=== PATIENT | male | born 1970 | race Caucasian/White ===

== ENCOUNTER 2018-12-24 11:26 | Emergency (ER) | payer BC ==
[2018-12-24 11:56] VITALS: BP 140/91
--- NOTE | 2018-12-24 12:02 | UC ---
UC General HPI - HPI Summary HPI Summary: Pleasant 48 yo gentleman presents c/o increased abd / flank pain since yesterday late afternoon/evening. No fever / chills. No n/v/d. Last bm yesterday, normal. No bm today. No freq /urg / dysuria / hematuria. No prior abd surgery. no rash. Some pain in L flank, and pain in periumbilical and infraumbilical region. No cp / sob / palpitations. No melena / brbpr. Wears heavy weight belt, better after it was removed but still + pain. 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 - History of Current Complaint Chief Complaint: UCAbdominalPain Stated Complaint: ABD/LOWER BACK PAIN Time Seen by Provider: 12/24/18 12:01 Hx Obtained From: Patient Pain Intensity: 3 - Allergy/Home Medications Allergies/Adverse Reactions: Allergies Allergy/AdvReac Type Severity Reaction Status Date / Time Seasonal/Environmental Allergy Intermediate Eyes Uncoded 12/01/14 10:37 Itchy/Swollen/Red/Watery Home Medications: Home Medications metFORMIN* [Glucophage 500 MG TAB *] 500 mg PO DAILY 12/24/18 [History Confirmed 12/24/18] PMH/Surg Hx/FS Hx/Imm Hx Previously Healthy: Yes - Surgical History Surgical History: Yes Surgery Procedure, Year, and Place: WISDOM TOOTH EXTRACTED- 2013-[facility]. [place] [place] ON TEETH- 40 YEARS AGO. cyst left wrist 2014 - Family History Known Family History: Positive: None - Social History Alcohol Use: Rare Substance Use Type: None Smoking Status (MU): Former Smoker Amount Used/How Often: X OFF AND ON When Did the Patient Quit Smoking/Using Tobacco: 25 years ago - Immunization History Most Recent Influenza Vaccination: Review of Systems All Other Systems Reviewed And Are Negative: Yes Constitutional: Positive: Negative Skin: Positive: Negative Eyes: Positive: Negative ENT: Positive: Negative Respiratory: Positive: Negative Cardiovascular: Positive: Negative Gastrointestinal: Positive: Other - see hpi Genitourinary: Positive: Other - see hpi Motor: Positive: Negative Neurovascular: Positive: Negative Musculoskeletal: Positive: Negative Neurological: Positive: Negative Psychological: Positive: Negative Is Patient Immunocompromised?: No Physical Exam Triage Information Reviewed: Yes Appearance: Well-Nourished - sitting up, painful to lay back and sit back up Vital Signs: Initial Vital Signs Temp 97.6 F 12/24/18 11:51 Pulse 73 12/24/18 11:51 Resp 18 12/24/18 11:51 BP 140/91 12/24/18 11:51 Pulse Ox 98 12/24/18 11:51 Vital Signs Reviewed: Yes Eye Exam: Normal ENT Exam: Normal Neck exam: Normal Neck: Positive: Supple Respiratory Exam: Normal Respiratory: Positive: Chest non-tender, Lungs clear, Normal breath sounds, No respiratory distress Cardiovascular Exam: Normal Cardiovascular: Positive: RRR, No Murmur, Pulses Normal Abdominal Exam: Other - + bs. Soft nondistended. + left flank pain, but not reproduced during exam "inside." + tender infraumbilical and RLE. No rebound / guarding. No LLQ tenderness. No rash. Musculoskeletal Exam: Normal - gait steady Neurological Exam: Normal - grossly nonfocal Psychological Exam: Normal - conversing easily and appropriately Skin Exam: Normal Course/Dx - Course Course Of Treatment: bp 140/91 (will need to f/u pcp) D/w pt - I recommend go to Emerg Dept for eval / tx acute abd pain. He absolutely declines. He is aware that by not going to the Emerg Dept, he risks undiagnosed problem, including surgical emergency. However, he will stay here for CT abd / pelvis here, will drink po contrast. Aware that this in and of itself may not be sufficient for full dx (nathan if results unremarkable). Blood work drawn. cbc, crp, cmp. Urine dip noted. Cx sent. 14:45 - s/o Dr. Singleton. Pending CT exam. Advised pt of this, no new issues, since primary exam. Questions as posed answered to the best of my ability. - Diagnoses Provider Diagnosis: Acute abdominal pain Discharge - Sign-Out/Discharge Documenting (check all that apply): Sign-Out Patient Signing out patient TO: Estefania Stanford - ct abd / pel pending All imaging exams completed and their final reports reviewed: No - Discharge Plan Referrals: Vickie Ramsay MD [Primary Care Provider] -
--- NOTE | 2018-12-24 15:19 | UC ---
- Progress Note Progress Note: RADIOLOGY REPORT REVIEWED. Findings suggestive of acute appendicitis. No evidence of appendiceal abscess is noted. Mild adjacent thickening of the terminal ileum. PT ADVISED HE MUST GO TO THE ER. PT OFFERED TRANSPORT TO THE ED BY AMBULANCE BUT DECLINES. ADVISED THAT BY NOT TRAVELING IN A MONITORED SETTING HE COULD BE RISKING WORSENING OF HIS CONDITION THAT COULD POSE A THREAT TO HIS LIFE, HEALTH AND MEDICAL SAFETY. HE VERBALIZES UNDERSTANDING AND CONTINUES TO DECLINE AMBULANCE TRANSFER. STATES HIS WILL DRIVE HIM. Course/Dx - Diagnoses Provider Diagnoses: Acute appendicitis Discharge - Sign-Out/Discharge Documenting (check all that apply): Patient Departure All imaging exams completed and their final reports reviewed: Yes - Discharge Plan Condition: Stable Disposition: TRANS HIGHER LVL OF CARE FAC Referrals: Vickie Ramsay MD [Primary Care Provider] - Additional Instructions: GO DIRECTLY TO THE [facility] ED FROM HERE FOR FURTHER EVALUATION OF YOUR ACUTE APPENDICITIS. DO NOT EAT OR DRINK ANYTHING. YOU HAVE DECLINED TRANSFER TO THE ED BY AMBULANCE. BE ADVISED THAT BY NOT TRAVELING IN A MONITORED SETTING YOU COULD BE RISKING WORSENING OF YOUR CONDITION THAT COULD POSE A THREAT TO YOUR LIFE, HEALTH AND MEDICAL SAFETY. - Billing Disposition and Condition Condition: STABLE Disposition: Trans Higher Lvl of Care Fac
[2018-12-24 16:13] LABS: ABS Basophils 0 10^3/ul (0-0.2); ABS Eosinophils 0.1 10^3/ul (0-0.6); ABS Lymphocytes 1.8 10^3/ul (1.0-4.8); ABS Monocytes 1.1 10^3/ul (0-0.8); ABS Nucleated RBC 0 10^3/ul; Eosinophil % 1.1 %; Hematocrit 44 % (36-46); Hemoglobin 14.7 g/dL (14.0-18.0); Lymphocyte % 16.1 %; Mean Corpuscular HGB Conc 33 g/dL (31-36); Mean Corpuscular Hemoglobin 29 pg (27-31); Mean Corpuscular Volume 87 fL (80-94); Mean Platelet Volume 8.2 fL (7.4-10.4); Nucleated Red Blood Cells % 0; Platelet Count 218 10^3/uL (150-450); Red Blood Count 5.09 10^6 /uL (4.18-5.48); Red Cell Distribution Width 14 % (10.5-15); White Blood Count 11.1 10^3/uL (3.5-10.8)
[2018-12-24 16:24] LABS: Albumin 4.9 g/dL (3.2-5.2); Calcium 9.3 mg/dL (8.6-10.3); Potassium 3.8 mmol/L (3.5-5.0); Total Bilirubin 0.5 mg/dL (0.2-1.0)
[2018-12-24 16:31] LABS: BUN/Creatinine Ratio 16.7 (8-20); C Reactive Protein 28.48 mg/L (<8.01); EGFR African American 88.7 (>60); EGFR Non-African American 73.3 (>60); Globulin 2.4 g/dL (2-4); Total Protein 7.3 g/dL (6.4-8.9)
== END 2018-12-24 15:20 | disposition short-term general hospital (02) ==
LOC: UCEAST 11:26
DX: R10.33 Periumbilical pain (principal); M54.5 Low back pain; Z87.891 Personal history of nicotine dependence
CPT/HCPCS: 36415; 74176; 80053; 81003; 85025; 86140; 99212; G0463

== ENCOUNTER 2018-12-24 15:50 | Day surgery (SDC) | payer BC ==
[2018-12-24] MEDS ORDERED: NS 0.9% 1000 ML** 2,000 ML IV ONE (15:55)
[2018-12-24] MEDS ORDERED: Morphine INJ* 10 MG/ML 1 ML CARPUJECT IV ONE (15:55)
--- NOTE | 2018-12-24 16:24 | ED ---
Abdominal Pain/Male - HPI Summary HPI Summary: A 48 y/o M presents to ED with c/o lower abd pain onset yesterday. The pain is still present today and was aggravated while driving. He was seen at [facility] [place] and had a A/P CT that showed "Findings suggestive of acute appendicitis. No evidence of appendiceal abscess is noted. Mild adjacent thickening of the terminal ileum." Associated sx: low back pain. Denies n/v. No prior abd surgeries. - History of Current Complaint Chief Complaint: EDAbdPain Stated Complaint: ABD PAIN/LOWER BACK PAIN PER PT Time Seen by Provider: 12/24/18 15:55 Hx Obtained From: Patient, Family/Product Representative - Onset/Duration: Sudden Onset, Lasting Days - yesterday, Still Present Timing: Constant Severity Initially: Moderate Severity Currently: Moderate Pain Intensity: 4 Pain Scale Used: 0-10 Numeric Location: Discrete At: RLQ, Discrete At: LLQ Radiates: Yes Radiates to: Back Associated Signs And Symptoms: Positive: Back Pain. Negative: Nausea, Vomiting - Allergies/Home Medications Allergies/Adverse Reactions: Allergies Allergy/AdvReac Type Severity Reaction Status Date / Time Seasonal/Environmental Allergy Intermediate Eyes Uncoded 12/24/18 16:12 Itchy/Swollen/Red/Watery Home Medications: Home Medications Cholecalciferol TAB* [Vitamin D TAB*] 1 tab PO DAILY 12/24/18 [History Confirmed 12/24/18] PMH/Surg Hx/FS Hx/Imm Hx Previously Healthy: No Endocrine/Hematology History: Reports: Hx Diabetes - PRE-DIABETIC- DIET AND EXERCISE Denies: Hx Thyroid Disease Cardiovascular History: Reports: Hx Hypertension - HISTORY OF - STATES OK NOW- ON OCCASION IS HIGH Denies: Hx Hypercholesterolemia, Hx Pacemaker/ICD, Hx Peripheral Vascular Disease Respiratory History: Denies: Hx Asthma, Hx Chronic Obstructive Pulmonary Disease (COPD) GI History: Reports: 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 2014-[place] SHOULD[place] [place] SURGERY ON TEETH- 40 YEARS AGO. cyst left wrist 2015 Hx Anesthesia Reactions: Yes - ?-NITROUS OXIDE- [facility] AND VOMITING-40 YEARS AGO Infectious Disease History: No Infectious Disease History: Denies: Hx Clostridium Difficile, Hx Hepatitis, Hx Human Immunodeficiency Virus (HIV), Hx of Known/Suspected MRSA, Hx Shingles, Hx Tuberculosis, Hx Known/ Suspected VRE, Hx Known/Suspected VRSA, History Other Infectious Disease, Traveled Outside the [place] in Last 30 Days - Family History Known Family History: Positive: Hypertension, Other - [place] - Social History Occupation: Employed Full-time Lives: With Family Alcohol Use: Rare Hx Substance Use: No Substance Use Type: Reports: None Hx Tobacco Use: Yes Smoking Status (MU): Former Smoker Amount Used/How Often: X OFF AND ON Review of Systems Positive: Abdominal Pain. Negative: Vomiting, Nausea Musculoskeletal: Other - pos: low back pain All Other Systems Reviewed And Are Negative: Yes Physical Exam - Summary Physical Exam Summary: Appearance: Well-appearing, Well-nourished, lying in bed comfortably Skin: Warm, dry, no obvious rash Eyes: sclera anicteric, no conjunctival pallor ENT: mucous membranes moist, pharynx appears normal Neck: Supple, nontender Respiratory: Clear to auscultation, no signs of respiratory distress Cardiovascular: Normal S1, S2. No murmurs. Normal distal pulses in tibial and radial bilaterally. Abdomen: Soft, normal active bowel sounds present, RLQ tenderness without peritoneal signs. Musculoskeletal: Normal, Strength/ROM Intact Neurological: A&Ox3, awake and alert, mentation is normal, speech is fluent and appropriate Psychiatric: affect is normal, does not appear anxious or depressed Triage Information Reviewed: Yes Vital Signs On Initial Exam: Initial Vitals Temp Pulse Resp BP Pulse Ox 97.6 F 65 18 132/104 99 12/24/18 16:05 12/24/18 16:05 12/24/18 16:05 12/24/18 16:05 12/24/18 16:05 Vital Signs Reviewed: Yes Diagnostics - Vital Signs Vital Signs Temp Pulse Resp BP Pulse Ox 12/24/18 16:05 97.6 F 65 18 132/104 99 - Laboratory Result Diagrams: 12/24/18 16:50 12/24/18 16:50 Lab Statement: Any lab studies that have been ordered have been reviewed, and results considered in the medical decision making process. - EKG 1637 Cardiac Rate: NL - 69 bpm EKG Rhythm: Sinus Rhythm Summary of EKG Findings: NSR at 69 BPM, P waves, QRS complex, and T waves are within normal limits, T waves and intervals are normal, no ischemic changes Abdominal Pain Male Course/Dx - Course Course Of Treatment: Pt is a 48 y/o M presenting with lower abd pain onset yesterday. He had a A/P CT done at [facility] that showed "Findings suggestive of acute appendicitis. No evidence of appendiceal abscess is noted. Mild adjacent thickening of the terminal ileum.". EKG is NSR at 69 BPM, P waves, QRS complex , and T waves are within normal limits, T waves and intervals are normal, no ischemic changes. Dr. Arellano, surgery, will take patient to OR. - Diagnoses Provider Diagnoses: Acute appendicitis - Provider Notifications Discussed Care Of Patient With: Renée Arellano - surgery Time Discussed With Above Provider: 16:40 Instructed by Provider To: Other - Will review CT and call back. Will take to OR. Discharge - Sign-Out/Discharge Documenting (check all that apply): Patient Departure - ADMIT - OR Patient Received Moderate/Deep Sedation with Procedure: No - Discharge Plan Condition: Stable Disposition: ADMITTED TO [facility] - Billing Disposition and Condition Condition: STABLE Disposition: Admitted to [facility] - Attestation Statements Document Initiated by Scribe: Yes Documenting Scribe: Poncho Huston Provider For Whom Millyibe is Documenting (Include Credential): Dr. Nathan Sharp MD Scribe Attestation: Rajesh, Poncho Huston, scribed for Dr. Nathan Sharp MD on 12/24/18 at 1919. Scribe Documentation Reviewed: Yes Provider Attestation: The documentation as recorded by the Poncho humphries accurately reflects the service I personally performed and the decisions made by me, Dr. Nathan Sharp MD Status of Scribe Document: Viewed
[2018-12-24] MEDS ORDERED: Morphine 10 MG/ML VIAL (1 ml) ONE (16:29)
[2018-12-24] MEDS: Piperacillin/Tazobac ADVAN(*) 3.375 GM in NS 0.9% 100 ML* 100 ML IVPB ONE ×2 (16:51→16:57)
[2018-12-24 16:57] LABS: ABS Basophils 0.1 10^3/ul (0-0.2); ABS Eosinophils 0.1 10^3/ul (0-0.6); ABS Lymphocytes 1.7 10^3/ul (1.0-4.8); ABS Monocytes 1.1 10^3/ul (0-0.8); ABS Neutrophils 7.5 10^3/ul (1.5-7.7); ABS Nucleated RBC 0 10^3/ul; Eosinophil % 1.2 %; Hematocrit 41 % (36-46); Hemoglobin 13.8 g/dL (14.0-18.0); Lymphocyte % 16.4 %; Mean Corpuscular HGB Conc 34 g/dL (31-36); Mean Corpuscular Hemoglobin 29 pg (27-31); Mean Corpuscular Volume 87 fL (80-94); Mean Platelet Volume 7.6 fL (7.4-10.4); Nucleated Red Blood Cells % 0; Platelet Count 224 10^3/uL (150-450); Red Blood Count 4.76 10^6 /uL (4.18-5.48); Red Cell Distribution Width 14 % (10.5-15); White Blood Count 10.6 10^3/uL (3.5-10.8)
[2018-12-24] MEDS ORDERED: fentaNYL* 50 MCG/ML 2 ML VIAL (100 MCG VIAL) ONE ×2 (17:01→17:57)
[2018-12-24] MEDS ORDERED: Midazolam* 1 MG/ML 5 ML VIAL (5 MG) ONE (17:01)
[2018-12-24] MEDS ORDERED: Atracurium* 10 MG/ML 10 ML VIAL ONE (17:01)
[2018-12-24] MEDS ORDERED: KETAMINE HCL* 50 MG/ML 10 ML VIAL ONE (17:01)
[2018-12-24] MEDS ORDERED: Bupivacaine 0.25% SDV PF* 10 ML VIAL INJ ONE (17:07)
[2018-12-24 17:13] LABS: BUN/Creatinine Ratio 16.7 (8-20); Calcium 8.8 mg/dL (8.6-10.3); EGFR African American 94.7 (>60); EGFR Non-African American 78.3 (>60); Potassium 3.9 mmol/L (3.5-5.0)
[2018-12-24] MEDS ORDERED: Dexamethasone IV* 4 MG/ML 1 ML (4 MG) ONE (17:16)
[2018-12-24] MEDS ORDERED: Ondansetron INJ* 2 MG/ML VIAL ONE (17:16)
[2018-12-24] MEDS ORDERED: Famotidine IV* 10 MG/ML 2 ML (20 mg) ONE (17:16)
[2018-12-24] MEDS ORDERED: ceFOXitin 2 GM IVPREMIX* 2 GM/50 ML BAG ONE (17:46)
--- NOTE | 2018-12-24 17:46 | PN ---
Progress Note - Progress Note Date of Service: 12/24/18 Note: Surgery Progress Note Please see dictated H&P for full details. Briefly, patient is a 48 yo M with 1 day of RLQ abdominal pain, WBC [address] concerning for acute appendicitis. On exam he had tenderness in the RLQ. Therefore, I discussed with him surgery which is a laparoscopic appendectomy. I discussed with him risks of surgery which include but are not limited to bleeding, infection, injury to nearby structures such as the small bowel, colon, bladder and other nearby anatomic structures. I discussed with him alternatives and benefits and expectations regarding recovery. He wishes to proceed with surgery.
[2018-12-24] MEDS ORDERED: Naloxone* 0.4 MG/ML 1 ML VIAL IV PRN (17:50)
[2018-12-24] MEDS ORDERED: DiMENhydriNATE IV* 50 MG/ML VIAL IV PUSH PRN (17:50)
[2018-12-24] MEDS ORDERED: fentaNYL* 50 MCG/ML 2 ML VIAL (100 MCG VIAL) IV PRN (17:50)
[2018-12-24] MEDS ORDERED: Morphine 4 MG/ML VIAL (1 ml) 4 MG/ML VIAL IV PRN (17:50)
[2018-12-24] MEDS ORDERED: Scopolamine 1.5 mg* PATCH TRANSDERM PRN (17:50)
[2018-12-24] MEDS ORDERED: PROCHLORPERAZINE INJ 5 MG/ML 2 ML VIAL IV PRN (17:50)
[2018-12-24] MEDS ORDERED: Neostigmine Methylsulfate* 1 MG/ML 10 ML VIAL (1 mg/ml) ONE (18:09)
[2018-12-24] MEDS ORDERED: Propofol* 10 MG/ML 20 ML BTL ONE (18:09)
[2018-12-24] MEDS ORDERED: Ketorolac INJ* 30 MG/ML 1 ML VIAL ONE (18:09)
[2018-12-24] MEDS ORDERED: Phenylephrine 40 MCG/ML SYRINGE ONE (18:09)
[2018-12-24] MEDS ORDERED: hydrALAZINE IV* 20 MG/ML VIAL ONE (18:09)
[2018-12-24] MEDS ORDERED: Glycopyrrolate IV* 0.2 MG/ML 1 ML VIAL ONE (18:09)
[2018-12-24] MEDS ORDERED: Metoprolol Tartrate IV* 1 MG/ML 5 ML VIAL ONE (19:06)
--- NOTE | 2018-12-24 20:32 | HP ---
HISTORY AND PHYSICAL: DATE OF ADMISSION: 12/24/18 SERVICE: General Surgery. ATTENDING SURGEON: Renée Arellano MD. DIAGNOSIS: Acute appendicitis. HISTORY OF PRESENT ILLNESS: Mr. Campuzano is a very pleasant 48-year-old male with a history of diabetes who presented to the emergency room from urgent care with complaints of having right lower quadrant pain for 1 day. The patient notes that the pain started yesterday and it progressively got worse today, so he presented for evaluation. He did not have any nausea, vomiting, any diarrhea or fevers at home. He describes the pain as intermittent and mainly in the right lower quadrant. He states it feels like that it radiates to his back as well. He is, otherwise, healthy and has no other complaints right now. PAST MEDICAL HISTORY: Diabetes, Singer esophagus. PAST SURGICAL HISTORY: Shoulder surgery. MEDICATIONS: 1. Metformin 500 mg p.o. daily. 2. Fluticasone 2 sprays both nares daily. 3. Nexium 40 mg p.o. daily. ALLERGIES: No known drug allergies. FAMILY HISTORY: Positive for hypertension. SOCIAL HISTORY: The patient is a former smoker. He is a sheriff deputy. He is . REVIEW OF SYSTEMS: Negative, except for abdominal pain and lower back pain. All other systems are negative. PHYSICAL EXAMINATION GENERAL: Well-appearing man, lying comfortably in bed, in no apparent distress. VITAL SIGNS: Temperature is 97.6, pulse is 72, respiratory rate is 18, O2 sat is 98% on room air, blood pressure is 134/87. HEENT: Normocephalic, atraumatic. RESPIRATORY: Clear to auscultation bilaterally. CARDIOVASCULAR: Regular rate and rhythm. ABDOMEN: Soft, nondistended. Tender in the right lower quadrant. EXTREMITIES: No edema. DIAGNOSTIC STUDIES/LAB DATA: Laboratory Values: White blood cell count 10.6, hemoglobin 13.8, hematocrit 41, platelets 224. Sodium is 135, potassium is 3.9 , chloride is 102, CO2 of 27, BUN 17, creatinine is 1.02, glucose is 119. Lactic acid is 0.8. Radiology: CT of abdomen and pelvis was reviewed, evidence of inflammation around the appendix. No evidence of appendiceal abscess. Mild thickening with the terminal ileum. ASSESSMENT AND PLAN: The patient is a 48-year-old male with a history of diabetes who presented to the emergency room with 1 day of right lower quadrant abdominal pain. His white count is not elevated. His vital signs have been stable. However, he does have a CT scan consistent and concerning for acute appendicitis. Therefore, informed consent was obtained for a laparoscopic, possible open appendectomy and related procedures. I explained that the risks include, but are not limited to bleeding, infection, injury to nearby structures such as the small- bowel; colon; bladder; and other adjacent anatomic structures. I also explained the expected course and explained that if the appendix is not perforated, then he should be able to be discharged home tonight; however, if it is perforated, he will require longer hospitalization with IV antibiotics. Expectations for return to recovery were provided to the patient. All questions were answered and we will proceed to the operating room. [id number]/[facility] #: [id number] ELVIA
[2018-12-24 20:50] VITALS: BP 119/75
--- NOTE | 2018-12-25 02:49 | OP ---
DATE OF OPERATION: 12/24/18 - [facility] DATE OF : 72 SERVICE: General surgery. ATTENDING SURGEON: Renée Arellano MD DIRECTOR AMBULATORY: None. ANESTHESIOLOGIST: Dr. Mark. ANESTHESIA: General endotracheal anesthesia. PRE-OP DIAGNOSIS: Acute appendicitis. POST-OP DIAGNOSIS: Acute appendicitis. OPERATIVE PROCEDURE: Laparoscopic appendectomy. ESTIMATED BLOOD LOSS: 10 cc. SPECIMEN: Appendix. INDICATIONS: Mr. Campuzano is a very pleasant 48-year-old gentleman with a history of diabetes mellitus who presented to the emergency room with 1-day of right lower quadrant abdominal pain. He had a CT scan concerning for acute appendicitis. He, therefore, gave informed consent for a laparoscopic appendectomy. He understood the risks, benefits and alternatives of the procedure and he wished to proceed. DESCRIPTION OF PROCEDURE: The patient was brought back to the operating room and placed on the operating room table in the supine position. Sequential compression devices were placed on the bilateral lower extremities for DVT prophylaxis. Antibiotics was administered prior to incision. General endotracheal anesthesia was induced. The patient's left arm was tucked and his abdomen was prepped and draped in the normal sterile fashion. The patient did urinate prior to coming into the operating room. Prior to beginning the procedure, time-out was performed, verifying the patient's name, MR number and the procedure to be performed. The patient did have a small umbilical hernia, therefore 0.25% Marcaine was infiltrated into the umbilicus. A vertical incision was made through the umbilicus and the natural umbilical hernia was identified and it was widened using Jessi clamp and a scalpel. Once this was done, a Randi trocar was placed into the abdomen. Insufflation was obtained in the patient and a 5-30 laparoscope was placed into the abdominal cavity. Upon general inspection of the abdominal cavity, there was no apparent injury that had been made upon entry. Next, under direct visualization, the 2 remaining 5-mm trocars were placed, 1 in the left lower quadrant and 1 in the lower mid abdomen, well above the pubis and the bladder. They were both placed after infiltrating with 0.25% Marcaine. Once this was done, the patient was placed with the head down and right side up. The small bowel was noted to be somewhat adherent into the lower pelvis, therefore, it was difficult to up to the upper abdomen. The appendix was noted to be in the right lower quadrant. It was partially retrocecal and very dilated and thickened. The mesentry was also very hard and thickened, clearly from an inflammatory response. It was very close to the terminal ileum and so with great care, the appendix was from the terminal ileum. The mesoappendix was divided using a ligature and the retroperitoneal attachments were divided. Once the appendix was able to be elevated out of the right lower quadrant and away from its retroperitoneal attachments, the base of the appendix was then identified. Once this was done, a 16-mm lancaster load EndoGIA was used to staple across the base of the appendix. The appendix was then placed into an Endo Catch bag and removed from the abdomen as specimen. Of note , the appendix was noted to be dilated and hyperemic, however, it was not perforated. Inspection of the staple line showed that it was hemostatic. The mesoappendix was also hemostatic. The right lower quadrant was irrigated very locally and after this was done, desufflation was obtained and the Randi trocar was removed from the umbilicus. A 0 Vicryl suture was used to close the fascia of the umbilicus in a [id number] fashion. After this was done, the abdomen was reinsufflated and inspection of the suture showed that there was nothing that had been caught with its closure and after this was confirmed, then desufflation was obtained and the 2 remaining trocars were removed under direct visualization. All the skin was closed using interrupted 4-0 Monocryl suture. Sterile dressing was then placed. The patient's anesthesia was reversed and he was taken to the PACU in stable condition. At the end of the case, all counts were correct and I was present through the entirety of the case. [id number]/[facility] #: [id number] [facility]
[2018-12-27] MEDS ORDERED: Scopolamine PATCH Remove* 1 NOTE MISC PATCH OFF ONE (17:51)
== END 2018-12-24 20:52 | disposition home or self-care (01) ==
LOC: ED 15:50 → OR 17:07
PROVIDERS: ATTEND Surgery
DX: K35.80 Unspecified acute appendicitis (principal); R10.31 Right lower quadrant pain; E11.9 Type 2 diabetes mellitus without complications; Z79.84 Long term (current) use of oral hypoglycemic drugs
CPT/HCPCS: 36415; 80048; 83605; 85025; 88304; 93005; 99285; J0360; J0694; J1100; J1885; J2250; J2270; J2405; J2543; J2704; J2710; J3010; J3490

== ENCOUNTER 2019-09-23 17:01 | Emergency (ER) | payer BC ==
[2019-09-23 17:44] VITALS: BP 135/87
--- NOTE | 2019-09-23 17:47 | UC ---
Respiratory Complaint HPI - HPI Summary HPI Summary: 49 yo male presents with flu-like symptoms. He tells me that his co-workers are sick with the flu and yesterday he developed sudden onset of chills, body aches , and fatigue. Today has had a dry cough and feels that his whole body is "burning". He has been taking tylenol/ibuprofen for his symptoms with good relief - non yet today. Did not get a flu shot this year. Denies SOB, chest pain , abdominal pain, n/v/d, dysuria - History of Current Complaint Chief Complaint: UCGeneralIllness Stated Complaint: UPPER RESPIRATORY Time Seen by Provider: 09/23/19 17:47 Hx Obtained From: Patient Onset/Duration: Sudden Onset Severity Initially: Moderate Severity Currently: Moderate Pain Intensity: 7 Pain Scale Used: 0-10 Numeric - Allergies/Home Medications Allergies/Adverse Reactions: Allergies Allergy/AdvReac Type Severity Reaction Status Date / Time Seasonal/Environmental Allergy Intermediate Eyes Uncoded 09/23/19 17:43 Itchy/Swollen/Red/Watery PMH/Surg Hx/FS Hx/Imm Hx Endocrine History: Diabetes GI/ History: Gastroesophageal Reflux - Surgical History Surgical History: Yes Surgery Procedure, Year, and Place: WISDOM TOOTH EXTRACTED- 2013[facility]. [place] [place] ON TEETH- 40 YEARS AGO. cyst left wrist 2014 - Family History Known Family History: Positive: Hypertension, Other - [place] - Social History Occupation: Employed Full-time Lives: With Family Alcohol Use: None Substance Use Type: None Smoking Status (MU): Former Smoker Amount Used/How Often: X OFF AND ON When Did the Patient Quit Smoking/Using Tobacco: 25 years ago - Immunization History Most Recent Influenza Vaccination: 2013/2014 Review of Systems All Other Systems Reviewed And Are Negative: No Constitutional: Positive: Fever, Chills, Fatigue, Other - Body aches Skin: Positive: Negative Eyes: Positive: Negative ENT: Positive: Negative Respiratory: Positive: Cough Cardiovascular: Positive: Negative Gastrointestinal: Positive: Negative Neurological: Positive: Negative Psychological: Positive: Negative Physical Exam - Summary Physical Exam Summary: GENERAL: NAD. WDWN. No pain distress. SKIN: No rashes, sores, lesions, or open wounds. HEENT: Head: AT/NC Eyes: EOM intact. Conjunctiva clear without inflammation or discharge. Ears: Hearing grossly normal. TMs intact, no bulging, erythema, or edema. Nose: Nasal mucosa pink and moist. NTTP maxillary and frontal sinus. Throat: Posterior oropharynx without exudates, erythema, or tonsillar enlargement. Uvula midline. NECK: Supple. Nontender. No lymphadenopathy. CHEST: CTAB. No r/r/w. No accessory muscle use. Breathing comfortably and in no distress. CV: RRR. Pulses intact. Cap refill <2seconds NEURO: Alert. PSYCH: Age appropriate behavior. Triage Information Reviewed: Yes Vital Signs: Initial Vital Signs Temp 100.9 F 09/23/19 17:38 Pulse 111 09/23/19 17:38 Resp 18 09/23/19 17:38 BP 135/87 09/23/19 17:38 Pulse Ox 96 09/23/19 17:38 Laboratory Tests 09/23/19 17:52 Influenza A (Rapid) Positive A Vital Signs Reviewed: Yes Diagnostics - Radiology CXR Radiology Interpretation Completed By: ED Physician Summary of Radiographic Findings: No PNA Respiratory Course/Dx - Course Course Of Treatment: CXR wet read negative - reviewed with Dr. Bailey. POC flu positive -- will rx for tamiflu given diabetes hx. - Differential Dx/Diagnosis Provider Diagnosis: Influenza Discharge ED - Sign-Out/Discharge Documenting (check all that apply): Patient Departure All imaging exams completed and their final reports reviewed: No - Discharge Plan Condition: Stable Disposition: HOME Prescriptions: Oseltamivir CAP* [Tamiflu CAP*] 75 mg PO BID #10 cap Patient Education Materials: Influenza (ED) Forms: *Work Release Referrals: Vickie Ramsay MD [Primary Care Provider] - Additional Instructions: If you develop a fever, shortness of breath, chest pain, new or worsening symptoms - please call your PCP or go to the ED immediately. Your blood pressure was high at todays visit. Please see your primary provider within 4 weeks for recheck and re-evaluation. Most people with the flu recover within one to two weeks without treatment. However, serious complications of the flu can occur. Go to the ER immediately if you: -- You feel short of breath or have trouble breathing -- You have pain or pressure in your chest or stomach -- You have signs of being dehydrated, such as dizziness when standing or not passing urine -- You feel confused -- You cannot stop vomiting or you cannot drink enough fluids There are several groups of people who are at increased risk for flu complications. These include women, young children (<5 years of age and especially <2 years of age), people older than 65 years of age, and people with certain diseases such as chronic lung disease (such as asthma), heart disease, diabetes, immunosuppressing conditions (such as HIV infection or transplantation), and some other diseases. Treat symptoms Treating the symptoms of influenza can help you to feel better but will not make the flu go away faster. -- Rest until the flu is fully resolved, especially if the illness has been severe. -- Fluids Drink enough fluids so that you do not become dehydrated. One way to windows desktop engineer if you are drinking enough is to look at the color of your urine. Normally, urine should be light yellow to nearly colorless. If you are drinking enough, you should pass urine every three to five hours. -- Acetaminophen (sample brand name: Tylenol) can relieve fever, headache, and muscle aches. Aspirin and medicines that include aspirin (eg, bismuth subsalicylate [sample brand name: Pepto-Bismol]) are not recommended for children under 18 because aspirin can lead to a serious disease called Parish syndrome. -- Cough medicines are not usually helpful; cough usually resolves without treatment. We do not recommend cough or cold medicine for children under age 6 years. - Billing Disposition and Condition Condition: STABLE Disposition: Home
[2019-09-23 17:56] LABS: Influenza A Molecular POSITIVE (Negative)
[2019-09-23] MEDS ORDERED: Ibuprofen TAB* 600 MG PO ONE (18:05)
--- NOTE | 2019-09-24 11:52 | UC ---
- Progress Note Progress Note: Patient Name: NAOMI ELENA Medical Record#: [id number] Ordering Physician: Facundo KIM Acct.#: [id number] : 1970 Age: 49 Sex: M [place] [facility] [place]: 09/23/191751 ADM Status: DEP ER Order Information: CHEST PA & LAT 2 VWS Accession Number: [id number] CPT: 55011 INDICATION: Cough. COMPARISON: There are no relevant prior studies available for comparison. TECHNIQUE: Dual-energy PA and lateral views of the chest were obtained. FINDINGS: The heart is within normal limits in size. Mediastinal and hilar contours appear within normal limits. The lungs are clear. No pleural effusion is seen. IMPRESSION: NO EVIDENCE FOR ACTIVE CARDIOPULMONARY DISEASE. R0 Preliminary Imaging Read R0 <Electronically signed by Rustam Varela MD in [place]> 09/24/19707 Dictated By: Rustam Varela MD Dictated Date/Time: 09/24/19706 Transcribed Date/Time: 09/24/19706 Copy to: CC:Lo Bailey MD; Vickie Ramsay MD; Facundo KIM Imaging - [facility] Imaging - [facility] Urgent [facility] [address] [address] ph ([phone]) ph ([phone]) ph ([phone]) This report is only to be considered final once signed by the Provider(s) as displayed in the "<Electronically Signed by >" field (s). Absence of a signature indicates the report is in a draft status and still needs to be finalized. In the event this document was created by someone other than the signing Provider, the individual initiating the document will be listed in the "Entered by:" or "Dictated by:" ferguson. 1 of 1 Course/Dx - Diagnoses Provider Diagnoses: Influenza Discharge ED - Sign-Out/Discharge Documenting (check all that apply): Post-Discharge Follow Up All imaging exams completed and their final reports reviewed: Yes - Discharge Plan Condition: Stable Disposition: HOME Prescriptions: Oseltamivir CAP* [Tamiflu CAP*] 75 mg PO BID #10 cap Patient Education Materials: Influenza (ED) Forms: *Work Release Referrals: Vickie Ramsay MD [Primary Care Provider] - Additional Instructions: If you develop a fever, shortness of breath, chest pain, new or worsening symptoms - please call your PCP or go to the ED immediately. Your blood pressure was high at todays visit. Please see your primary provider within 4 weeks for recheck and re-evaluation. Most people with the flu recover within one to two weeks without treatment. However, serious complications of the flu can occur. Go to the ER immediately if you: -- You feel short of breath or have trouble breathing -- You have pain or pressure in your chest or stomach -- You have signs of being dehydrated, such as dizziness when standing or not passing urine -- You feel confused -- You cannot stop vomiting or you cannot drink enough fluids There are several groups of people who are at increased risk for flu complications. These include women, young children (<5 years of age and especially <2 years of age), people older than 65 years of age, and people with certain diseases such as chronic lung disease (such as asthma), heart disease, diabetes, immunosuppressing conditions (such as HIV infection or transplantation), and some other diseases. Treat symptoms Treating the symptoms of influenza can help you to feel better but will not make the flu go away faster. -- Rest until the flu is fully resolved, especially if the illness has been severe. -- Fluids Drink enough fluids so that you do not become dehydrated. One way to presiding judge if you are drinking enough is to look at the color of your urine. Normally, urine should be light yellow to nearly colorless. If you are drinking enough, you should pass urine every three to five hours. -- Acetaminophen (sample brand name: Tylenol) can relieve fever, headache, and muscle aches. Aspirin and medicines that include aspirin (eg, bismuth subsalicylate [sample brand name: Pepto-Bismol]) are not recommended for children under 18 because aspirin can lead to a serious disease called Parish syndrome. -- Cough medicines are not usually helpful; cough usually resolves without treatment. We do not recommend cough or cold medicine for children under age 6 years. - Billing Disposition and Condition Condition: STABLE Disposition: Home
== END 2019-09-23 18:40 | disposition home or self-care (01) ==
LOC: UCCORT 17:01
DX: J11.1 Influenza due to unidentified influenza virus with other respiratory manifestations (principal); E11.9 Type 2 diabetes mellitus without complications; Z87.891 Personal history of nicotine dependence; Z91.09 Other allergy status, other than to drugs and biological substances
CPT/HCPCS: 71046; 99212; A9270-GY; G0463